=== PATIENT | female | born 1985 | race Hispanic/Latino ===

== ENCOUNTER 2022-08-05 22:07 | Emergency (ER) | payer SELFPAY ==
[2022-08-05 23:24] LABS: Absolute Lymphocytes (CBC) 2.2 K/uL (0.7-4.9); Hematocrit 37.8 % (36.0-45.0); Lymphocytes % 13.4 % (15.3-44.8); MCV 85.9 fL (80-100); MPV 8.8 fL (7.6-11.3)
[2022-08-05] MEDS ORDERED: dexAMETHasone 10 MG/ML VIAL ONE (23:25)
[2022-08-05] MEDS ORDERED: CLINDAMYCIN 900MG/D5W 900 MG/50 ML IVPB IV ONE (23:25)
[2022-08-05] MEDS ORDERED: HYDROCOD 2.5mg-ACETAMIN 108mg/5mL Soln ONE (23:25)
[2022-08-05] MEDS ORDERED: NA CHLORIDE 0.9% 1,000 ML ONE (23:25)
[2022-08-05 23:36] LABS: Potassium 3.4 mmol/L (3.5-5.1)
--- NOTE | 2022-08-06 00:05 | RAD REPORT ---
EXAM DESCRIPTION: CT - Soft Tissue Neck W/Contr - 08/05/2022 11:54 pm CLINICAL HISTORY: Neck pain/dysphagia COMPARISON: None. TECHNIQUE: Computed axial tomography of the neck was obtained. 50 cc Isovue 300 was administered in travenously. Coronal and sagittal reconstruction was performed. All CT scans are performed using dose optimization technique as appropriate and may include automated exposure control or mA/KV adjustment according to patient size. FINDINGS: The left tonsil is enlarged and inhomogeneous. A tonsillar/ peritonsillar abscess is not n oted. The parapharyngeal fat is normal. The remainder of the pharynx, tongue base, larynx and subglottic trachea appear unremarkable The parotid, submandibular and thyroid glands appear unremarkable. Small reactive neck lymph nodes. No fluid within the sinuses/mastoids IMPRESSION: Left tonsillitis
[2022-08-06 00:14] LABS: Urine Blood 3+ (Negative); Urine Glucose Negative (Negative); Urine Protein Trace (Negative); Urine pH 6.5 (5.0-7.0)
--- NOTE | 2022-08-06 00:35 | ER ---
Nurse's Notes [facility] Name: Alysa Win Age: 37 yrs Sex: Female : 1985 Arrival Date: 08/05/2022 Time: 22:09 Bed 19 Private MD: Diagnosis: Acute tonsillitis, unspecified Presentation: 08/05 22:18 Chief complaint: Painful abscess in back of throat x 3 days. Coronavirus screen: At this time, the client does not indicate any symptoms associated with coronavirus-19. Ebola Screen: No symptoms or risks identified at this time. Risk Assessment: Do you want to hurt yourself or someone else? Patient reports no desire to harm self or others. Onset of symptoms was August 03, 2022. 22:18 Method Of Arrival: Ambulatory 22:18 Acuity: HAYLEY 3 hb Historical: - Allergies: 22:20 No Known Allergies; hb - Immunization history:: Adult Immunizations up to date. - Social history:: Smoking status: Patient denies any tobacco usage or history of. Screenin:34 Abuse screen: Denies threats or abuse. Nutritional screening: No deficits noted. ja4 Tuberculosis screening: No symptoms or risk factors identified. Fall Risk None identified. Assessment: 22:32 General: Appears uncomfortable, obese, Behavior is cooperative. Pain: Complains of pain ja4 in neck Pain currently is 10 out of 10 on a pain scale. Quality of pain is described as aching, sharp, tender, Pain began 2-3 days ago. Respiratory: No deficits noted. EENT: Throat is reddened has enlarged tonsils bilaterally whit patches bilaterally. Cervical nodes enlarged bilaterally. Vital Signs: 22:18 BP 136 / 106; Pulse 105; Resp 18; Temp 99.9; Pulse Ox 100% on R/A; Weight 68.04 kg; hb Height 5 ft. (152.40 cm); Pain 10/10; 08/06 01:01 BP 124 / 85; Pulse 83; Resp 14; Pulse Ox 98% on R/A; ja4 08/05 22:18 Body Mass Index 29.29 (68.04 kg, 152.40 cm) ED Course: 08/05 22:09 Patient arrived in ED. bp1 22:20 Triage completed. hb 22:32 Devan Eli RN is Primary Nurse. ja4 22:34 Bed in low position. Call light in reach. Adult w/ patient. ja4 22:42 Strep Sent. ja4 22:43 Getachew Stanley PA is PHCP. cp 22:43 Getachew Pope MD is Attending Physician. cp 23:13 Blood Culture Adult (2) Sent. ja4 23:13 BMP Sent. ja4 23:13 Procalcitonin Sent. ja4 23:13 CBC with Diff Sent. ja4 23:13 Lactate Sent. ja4 23:13 [place] Screen Profile Sent. ja4 23:13 Strep Sent. ja4 23:55 CT Soft Tissue Neck W/contr In Process Unspecified. EDMS 08/06 00:34 Josie Hernandez MD is Referral Physician. cp 01:02 IV discontinued, intact, bleeding controlled, No redness/swelling at site. Pressure ja4 dressing applied. Administered Medications: 08/05 23:22 Drug: Decadron - Dexamethasone 10 mg Route: IVP; Site: right antecubital; ja4 23:22 Drug: Clindamycin 900 mg Route: IVPB; Infused Over: 30 mins; Site: right antecubital; ja4 23:22 Drug: Lortab Liquid 10 ml Route: PO; ja4 23:23 Drug: NS 0.9% 1000 ml Route: IV; Rate: 1 bolus; Site: right antecubital; ja4 08/06 01:01 Not Given (Patient Refused): Potassium Effervescent Tablet 25 mEq PO once; dissolve in ja4 4 ounces of water or juice Outcome: 00:34 Discharge ordered by MD. cp 01:02 Discharged to home ambulatory. ja4 01:02 Condition: stable 01:02 Discharge instructions given to patient, friend, Instructed on discharge instructions, follow up and referral plans. medication usage, Demonstrated understanding of instructions, follow-up care, medications, Prescriptions given X 3. 01:03 Patient left the ED. ja4 Signatures: Dispatcher [employer] [facility] Getachew Stanley PA PA cp Baxter, Heather, RN RN Mindy Mckeon [facility] Devan Eli RN RN ja4
--- NOTE | 2022-08-06 00:35 | EDPHYS ---
Physician Documentation [facility] Name: Alysa Win Age: 37 yrs Sex: Female : 1985 Arrival Date: 08/05/2022 Time: 22:09 Bed 19 Private MD: ED Physician Getachew Pope HPI: 08/05 22:50 This 37 yrs old Female presents to ER via Ambulatory with complaints of Sore cp Throat, "lump in throat". 22:50 The patient presents with sore throat, dysphagia, of both solids and liquids. The cp patient describes throat pain as constant. 22:50 Onset: The symptoms/episode began/occurred 3 day(s) ago. cp 22:50 Severity of symptoms: in the emergency department the symptoms are unchanged, despite cp home interventions. Associated signs and symptoms: Pertinent positives: earache, fever, headache. Historical: - Allergies: 22:20 No Known Allergies; hb - Immunization history:: Adult Immunizations up to date. - Social history:: Smoking status: Patient denies any tobacco usage or history of. ROS: 22:55 Constitutional: Positive for body aches, poor PO intake, Negative for fever. cp 22:55 Eyes: Negative for injury, pain, redness, and discharge. cp 22:55 ENT: Positive for difficulty swallowing, ear pain, sore throat, Negative for drainage from ear(s), difficulty handling secretions. 22:55 Cardiovascular: Negative for chest pain, palpitations. 22:55 Respiratory: Negative for cough, shortness of breath, wheezing. 22:55 Abdomen/GI: Negative for abdominal pain, vomiting, diarrhea, constipation. 22:55 Neuro: Positive for headache, Negative for altered mental status. 22:55 All other systems are negative. Exam: 23:00 Constitutional: The patient appears in no acute distress, alert, awake, non-toxic, well cp developed, well nourished, uncomfortable. 23:00 Head/Face: Normocephalic, atraumatic. cp 23:00 Eyes: Periorbital structures: appear normal, Conjunctiva: normal, no exudate, no injection, Sclera: no appreciated abnormality, Lids and lashes: appear normal, bilaterally. 23:00 ENT: External ear(s): are unremarkable, Ear canal(s): are normal, clear, TM's: bulging, is not appreciated, bilaterally, dullness, bilaterally, erythema, is not appreciated, bilaterally, Nose: is normal, Mouth: Lips: moist, Oral mucosa: moist, Posterior pharynx: Airway: no evidence of obstruction, patent, Tonsils: bilaterally enlarged, with erythema, with exudate, Uvula: midline, erythema, that is moderate, Voice: is hoarse. 23:00 Neck: ROM/movement: Meningeal signs: are not present, nuchal rigidity, is not appreciated. 23:00 Chest/axilla: Inspection: normal. 23:00 Cardiovascular: Rate: tachycardic, Rhythm: regular. 23:00 Respiratory: the patient does not display signs of respiratory distress, Respirations: normal, no use of accessory muscles, no retractions, labored breathing, is not present, Breath sounds: are clear throughout, no decreased breath sounds, no stridor, no wheezing. 23:00 Abdomen/GI: Inspection: abdomen appears normal, Palpation: abdomen is soft and non-tender, in all quadrants. 23:00 Neuro: Orientation: to person, place \\T\\ time. Mentation: is normal, Motor: moves all fours, strength is normal, Sensation: is normal. Vital Signs: 22:18 BP 136 / 106; Pulse 105; Resp 18; Temp 99.9; Pulse Ox 100% on R/A; Weight 68.04 kg; hb Height 5 ft. (152.40 cm); Pain 10/10; 08/06 01:01 BP 124 / 85; Pulse 83; Resp 14; Pulse Ox 98% on R/A; [facility] 08/05 22:18 Body Mass Index 29.29 (68.04 kg, 152.40 cm) hb [facility]: 08/05 22:44 Patient medically screened. [facility] 23:00 Differential diagnosis: group A strep tonsillitis, laryngitis, peritonsillar abscess cp pharyngitis, retropharyngeal abcess tonsillitis, uvulitis. 08/05 22:36 Order name: Strep; Complete Time: 00:06 [facility] 08/06 00:07 Interpretation: Reviewed. 08/05 22:50 Order name: [place] Screen Profile; Complete Time: 00:06 08/06 00:06 Interpretation: Reviewed. 08/05 22:50 Order name: CBC with Diff; Complete Time: 00:06 08/06 00:06 Interpretation: Normal except: WBC 16.10; YANELI% 77.0; LYM% 13.4; NEUT A 12.4; MNA 1.4. 08/05 22:50 Order name: Lactate; Complete Time: 00:06 08/06 00:06 Interpretation: LAC 0.9; Reviewed. 08/05 22:50 Order name: Procalcitonin; Complete Time: 00:18 08/06 00:18 Interpretation: Abnormal: Procalcitonin 0.09. 08/05 22:50 Order name: BMP; Complete Time: 00:06 08/06 00:06 Interpretation: Normal except: K 3.4. 08/05 22:50 Order name: CT Soft Tissue Neck W/contr; Complete Time: 00:10 08/05 22:50 Order name: Blood Culture Adult (2) 08/05 23:25 Order name: Throat Culture [facility] 08/06 00:14 Order name: Urine Dipstick-Ancillary; Complete Time: 00:18 [facility] 08/06 00:18 Interpretation: Normal except: UKET 1+; UBLD 3+; UPROT Trace; UESTR Trace. 08/06 00:14 Order name: Urine --Ancillary (enter results) [facility] 08/05 22:50 Order name: IV; Complete Time: 23:13 08/05 22:50 Order name: Urine Dipstick-Ancillary (obtain specimen); Complete Time: 00:13 08/05 22:50 Order name: Urine Test (obtain specimen); Complete Time: 00:13 cp Administered Medications: 23:22 Drug: Decadron - Dexamethasone 10 mg Route: IVP; Site: right antecubital; ja4 23:22 Drug: Clindamycin 900 mg Route: IVPB; Infused Over: 30 mins; Site: right antecubital; ja4 23:22 Drug: Lortab Liquid 10 ml Route: PO; ja4 23:23 Drug: NS 0.9% 1000 ml Route: IV; Rate: 1 bolus; Site: right antecubital; [facility] 08/06 01:01 Not Given (Patient Refused): Potassium Effervescent Tablet 25 mEq PO once; dissolve in ja4 4 ounces of water or juice Disposition Summary: 08/06/22 00:34 Discharge Ordered Location: Home cp Problem: new cp Symptoms: have improved cp Condition: Stable cp Diagnosis - Acute tonsillitis, unspecified cp Followup: cp - With: Josie Hernandez MD - When: 1 - 2 days - Reason: Worsening of condition Discharge Instructions: - Discharge Summary Sheet cp - Tonsillitis cp Forms: - Medication Reconciliation Form cp - Thank You Letter cp - Antibiotic Education cp - Prescription Opioid Use cp Prescriptions: - Lidocaine Viscous - take 5 milliliter by ORAL route every 4-6 hours; 1 bottle; Refills: 0, Product cp Selection Permitted - Clindamycin HCl 300 mg Oral Capsule - take 1 capsule by ORAL route every 6 hours for 10 days; 40 capsule; Refills: 0, cp Product Selection Permitted - Ibuprofen 800 mg Oral Tablet - take 1 tablet by ORAL route every 8 hours As needed take with food; 30 tablet; cp Refills: 0, Product Selection Permitted - Tylenol-Codeine #3 300 mg-30 mg Oral - take 2 tablet by ORAL route every 8-10 hours; 12 tablet; Refills: 0, Product cp Selection Permitted Signatures: Dispatcher [employer] Getachew Rogers MD MD cha Page, Corey, JOSEPH PA cp Darby Garcia RN RN Devan Eli RN RN ja4 Corrections: (The following items were deleted from the chart) 08/07 00:57 00:55 Constitutional: Positive for body aches, poor PO intake, Negative for fever, cp cp
[2022-08-06 01:21] VITALS: TEMP 99.9
[2022-08-06 01:24] VITALS: BP 124/85; O2SAT 98
[2022-08-06 02:45] LABS: Urine Specific Gravity/Preg 1.005 (1.005-1.030)
== END 2022-08-06 01:03 | disposition home or self-care (01) ==
LOC: ER 22:07
DX: J03.90 Acute tonsillitis, unspecified (principal); R51.9 Headache, unspecified
CPT/HCPCS: 36415; 70491; 80048; 81003; 81025; 83605; 84145; 85025; 86308; 87040; 87070; 87081; 96374; 96375; 99284; J1100; J7030; Q9967

== ENCOUNTER 2024-03-27 04:06 | Emergency (ER) | payer SELFPAY ==
[2024-03-27] MEDS ORDERED: CEFTRIAXONE 1000 MG/VIAL ONE (04:28)
[2024-03-27] MEDS ORDERED: LIDOCAINE VISCOUS 2% 10ML ORAL SOLN ONE (04:29)
[2024-03-27] MEDS ORDERED: dexAMETHasone 10 MG/ML VIAL ONE (04:29)
[2024-03-27] MEDS ORDERED: MAGNES/ALUMIN/SIMET 30ML UCUP ONE (04:29)
[2024-03-27] MEDS ORDERED: AMOX/K CLAV 875 MG TAB ONE (04:29)
[2024-03-27] MEDS ORDERED: WATER FOR INJ,STERILE 10 ML ONE (04:30)
[2024-03-27] MEDS ORDERED: IBUPROFEN 200 MG TAB PO ONE (04:49)
[2024-03-27] MEDS ORDERED: IBUPROFEN 400 MG TAB ONE (04:49)
[2024-03-27 05:07] LABS: SARS-CoV-2 Antigen CONTROL BLUE LINE VIS/BG OK; SARS-CoV-2 Antigen Rapid Res Negative (Negative)
--- NOTE | 2024-03-27 05:15 | ER ---
Nurse's Notes [facility] Name: Alysa Win Age: 38 yrs Sex: Female : 1985 Arrival Date: 03/27/2024 Time: 04:06 Bed 13 Private MD: Diagnosis: Acute tonsillitis, unspecified;Acute pharyngitis, unspecified;Fever, unspecified;Streptococcal pharyngitis;Acute streptococcal tonsillitis, unspecified Presentation: 03/27 04:14 Chief complaint: Patient states: sore throat pain of 10 with swelling, cough, left ear pf1 pain and frontal headache,onset Saturday. 04:14 Coronavirus screen: Vaccine status: Patient reports receiving the 2nd dose of the covid pf1 vaccine. [employer] Client denies travel out of the [place] in the last 14 days. Client presents with at least one sign or symptom that may indicate coronavirus-19. Ebola Screen: Patient negative for fever greater than or equal to 101.5 degrees Fahrenheit, and additional compatible Ebola Virus Disease symptoms. Initial Sepsis Screen: Does the patient meet any 2 criteria? No. Patient's initial sepsis screen is negative. Does the patient have a suspected source of infection? No. Patient's initial sepsis screen is negative. Risk Assessment: Do you want to hurt yourself or someone else? Patient reports no desire to harm self or others. Onset of symptoms was March 24, 2024. Care prior to arrival: Medication(s) given: Tylenol, 500mg at 0000. 04:14 Method Of Arrival: Ambulatory pf1 04:14 Acuity: HAYLEY 3 pf1 Triage Assessment: 04:14 General: Appears in no apparent distress. uncomfortable, well groomed, well developed, pf1 Behavior is calm, cooperative, appropriate for age, quiet. Pain: Complains of pain in throat,left ear and headache Pain currently is 10 out of 10 on a pain scale. EENT: Reports pain in left ear,frontal headache, and throat. Neuro: Level of Consciousness is awake, alert, obeys commands, Oriented to person, place, time, situation, Reports headache frontal area. Cardiovascular: No deficits noted. Capillary refill < 3 seconds Patient's skin is warm and dry. Respiratory: Reports cough that is Airway is patent Respiratory effort is even, unlabored, Respiratory pattern is regular, symmetrical. GI: No deficits noted. No signs and/or symptoms were reported involving the gastrointestinal system. : No deficits noted. No signs and/or symptoms were reported regarding the genitourinary system. Derm: No deficits noted. No signs and/or symptoms reported regarding the dermatologic system. Musculoskeletal: No deficits noted. No signs and/or symptoms reported regarding the musculoskeletal system. CLINICAL PSYCHOLOGY PROFESSOR: 05:30 Not , unknown pf1 Historical: - Allergies: 04:27 No Known Allergies; pf1 - PMHx: 04:27 None; pf1 - PSHx: 04:27 Appendectomy; pf1 - Immunization history:: Adult Immunizations not up to date, Client reports receiving the 2nd dose of the Covid vaccine, [employer] Last tetanus immunization: > 10 years ago Flu vaccine is not up to date. - Infectious Disease History:: Denies. - Social history:: Smoking status: Patient denies any tobacco usage or history of. Patient/guardian denies using alcohol, street drugs. Screenin:31 [facility] ED Fall Risk Assessment (Adult) History of falling in the last 3 months, pf1 including since admission No falls in past 3 months (0 pts) Confusion or Disorientation No (0 pts) Intoxicated or Sedated No (0 pts) Impaired Gait No (0 pts) Mobility Assist Device Used No (0 pt) Altered Elimination No (0 pt) Score/Fall Risk Level 0 - 2 = Low Risk Oriented to surroundings, Maintained a safe environment, Educated pt \T\ family on fall prevention, incl call for assistance when getting out of bed, Assessed \T\ reinforced patient's understanding of fall precautions, Provided non-skid footwear, Hourly rounding (assess needs \T\ fall precautionary measures) done, Used ambulatory aids as needed (educated on \T\ assisted with), Used gait belt as appropriate. Abuse screen: Denies threats or abuse. Nutritional screening: No deficits noted. Tuberculosis screening: No symptoms or risk factors identified. Assessment: 04:14 EENT: Throat is reddened has enlarged tonsils bilaterally. pf1 04:30 Reassessment: see triage assessment. pf1 04:30 Respiratory: Airway is patent Respiratory effort is even, unlabored, Respiratory pf1 pattern is regular, symmetrical, Breath sounds are clear bilaterally. 05:27 Reassessment: Patient appears in no apparent distress at this time. Patient and/or pf1 family updated on plan of care and expected duration. Pain level reassessed. Patient is alert, oriented x 3, equal unlabored respirations, skin warm/dry/pink. Patient states symptoms have improved. Vital Signs: 04:14 BP 144 / 100; Pulse 86; Resp 16; Temp 97.9; Pulse Ox 100% on R/A; Weight 68.04 kg; pf1 Height 5 ft. 1 in. ; Pain 10/10; 04:43 BP 130 / 79; Pulse 81; Pulse Ox 100% on R/A; lg3 05:28 BP 134 / 81; Pulse 77; Resp 16 S; Temp 97.1(O); Pulse Ox 100% on R/A; lg3 04:14 Body Mass Index 28.34 (68.04 kg, 154.94 cm) pf1 04:14 Pain Scale: Adult pf1 ED Course: 04:10 Patient arrived in ED. [email or web address] 04:14 Getachew Pope MD is Attending Physician. coleen 04:14 Arm band placed on right wrist. pf1 04:14 Patient has correct armband on for positive identification. Placed in gown. Call light pf1 in reach. 04:26 Lacy Cordero, RN is Primary Nurse. lg3 04:27 Triage completed. pf1 04:32 SARS RAPID Sent. rv1 04:32 Flu Sent. rv1 04:32 Strep Sent. rv1 04:39 No provider procedures requiring assistance completed. EKG done, by ED staff, reviewed pf1 by Getachew Pope MD. 05:14 Destiny Mercedes MD is Referral Physician. coleen 05:28 Patient did not have IV access during this emergency room visit. pf1 05:29 Provided Education on: follow up and prescriptions. pf1 05:31 Chest Pa And Lat (2 Views) XRAY In Process Unspecified. EDMS Administered Medications: 04:43 Drug: GI Cocktail without - (Maalox PO 30 ml, Lidocaine Mucous Membrane 2 % 15 lg3 ml) PO once Route: PO; 05:24 Follow up: Response: No adverse reaction lg3 04:43 Drug: Rocephin (cefTRIAXone) IM 1 grams IM once Route: IM; Site: right deltoid; lg3 05:24 Follow up: Response: No adverse reaction lg3 04:43 Drug: Dexamethasone IM 10 mg IM once Route: IM; Site: left deltoid; lg3 05:23 Follow up: Response: No adverse reaction lg3 04:43 Drug: Amoxicillin-Clavulanate PO 875 mg PO once Route: PO; lg3 05:23 Follow up: Response: No adverse reaction lg3 04:53 Drug: Ibuprofen PO 600 mg PO once Route: PO; lg3 05:23 Follow up: Response: No adverse reaction lg3 Medication: 05:29 VIS not applicable for this client. pf1 Outcome: 05:14 Discharge ordered by . coleen 05:28 Discharged to home ambulatory, pf1 05:28 Condition: stable 05:28 Discharge instructions given to patient, Instructed on discharge instructions, follow up and referral plans. Demonstrated understanding of instructions, follow-up care, medications, Prescriptions given X 4, 05:44 Patient left the ED. pf1 Signatures: Dispatcher [employer] EDMS Getachew Pope MD MD cha Able, Lacie RN RN lg3 Idalia Corona [place]ala, RN RN pf1 [place] rv1 Corrections: (The following items were deleted from the chart) 05:14 04:14 Neuro: No deficits noted. Level of Consciousness is awake, alert, obeys commands, pf1 Oriented to person, place, time, situation, pf1 05:28 04:14 Acuity: HAYLEY 4 pf1 pf1
--- NOTE | 2024-03-27 05:15 | EDPHYS ---
Physician Documentation [facility] Name: Alysa Win Age: 38 yrs Sex: Female : 1985 Arrival Date: 03/27/2024 Time: 04:06 Bed 13 Private MD: ED Physician Getachew Pope HPI: 03/27 04:22 This 38 yrs old Female presents to ER via Unassigned with complaints of Fever, coleen Sore Throat, Neck and Upper Back Pain, Difficulty Swallowing, Headache. 04:22 The patient reports fever, not measured (subjective). Onset: The symptoms/episode coleen began/occurred 2 day(s) ago. Modifying factors: there are no obvious modifying factors. Associated signs and symptoms: Pertinent positives: arthralgias. Severity of symptoms: At their worst the symptoms were mild moderate in the emergency department the symptoms are unchanged. The patient has experienced similar episodes in the past, a few times. 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 - Infectious Disease History:: Denies. - Social history:: Smoking status: Patient denies any tobacco usage or history of. Patient/guardian denies using alcohol, street drugs. ROS: 04:29 Constitutional: Negative for fever, chills, and weight loss, Eyes: Negative for injury, coleen pain, redness, and discharge, Neck: Negative for injury, pain, and swelling, Cardiovascular: Negative for chest pain, palpitations, and edema, Respiratory: Negative for shortness of breath, cough, wheezing, and pleuritic chest pain, Abdomen/GI: Negative for abdominal pain, nausea, vomiting, diarrhea, and constipation, Back: Negative for injury and pain, : Negative for injury, bleeding, discharge, and swelling, MS/Extremity: Negative for injury and deformity, Skin: Negative for injury, rash, and discoloration, Neuro: Negative for headache, weakness, numbness, tingling, and seizure, Psych: Negative for depression, anxiety, suicide ideation, homicidal ideation, and hallucinations, Allergy/Immunology: Negative for hives, rash, and allergies, Endocrine: Negative for neck swelling, polydipsia, polyuria, polyphagia, and marked weight changes, Hematologic/Lymphatic: Negative for swollen nodes, abnormal bleeding, and unusual bruising, 04:29 ENT: Positive for sinus congestion, sore throat, Exam: 04:29 Constitutional: This is a well developed, well nourished patient who is awake, alert, coleen and in no acute distress. Head/Face: Normocephalic, atraumatic. Eyes: Pupils equal round and reactive to light, extra-ocular motions intact. Lids and lashes normal. Conjunctiva and sclera are non-icteric and not injected. Cornea within normal limits. Periorbital areas with no swelling, redness, or edema. Neck: Trachea midline, no thyromegaly or masses palpated, and no cervical lymphadenopathy. Supple, full range of motion without nuchal rigidity, or vertebral point tenderness. No Meningismus. Chest/axilla: Normal chest wall appearance and motion. Nontender with no deformity. No lesions are appreciated. Cardiovascular: Regular rate and rhythm with a normal S1 and S2. No gallops, murmurs, or rubs. Normal PMI, no JVD. No pulse deficits. Respiratory: Lungs have equal breath sounds bilaterally, clear to auscultation and percussion. No rales, rhonchi or wheezes noted. No increased work of breathing, no retractions or nasal flaring. Abdomen/GI: Soft, non-tender, with normal bowel sounds. No distension or tympany. No guarding or rebound. No evidence of tenderness throughout. Back: No spinal tenderness. No costovertebral tenderness. Full range of motion. Skin: Warm, dry with normal turgor. Normal color with no rashes, no lesions, and no evidence of cellulitis. MS/ Extremity: Pulses equal, no cyanosis. Neurovascular intact. Full, normal range of motion. Neuro: Awake and alert, GCS 15, oriented to person, place, time, and situation. Cranial nerves II-XII grossly intact. Motor strength 5/5 in all extremities. Sensory grossly intact. Cerebellar exam normal. Normal gait. Psych: Awake, alert, with orientation to person, place and time. Behavior, mood, and affect are within normal limits. 04:29 ENT: Posterior pharynx: Tonsils: bilaterally enlarged, with erythema, Uvula: normal, midline, non-edematous, no erythema, swelling, is not appreciated, erythema, that is mild, exudate, is not appreciated, Dental exam: no acute changes, 04:43 ECG was reviewed by the Attending Physician. [facility] Vital Signs: 04:14 BP 144 / 100; Pulse 86; Resp 16; Temp 97.9; Pulse Ox 100% on R/A; Weight 68.04 kg; pf1 Height 5 ft. 1 in. ; Pain 10/10; 04:43 BP 130 / 79; Pulse 81; Pulse Ox 100% on R/A; lg3 05:28 BP 134 / 81; Pulse 77; Resp 16 S; Temp 97.1(O); Pulse Ox 100% on R/A; lg3 04:14 Body Mass Index 28.34 (68.04 kg, 154.94 cm) pf1 04:14 Pain Scale: Adult pf1 MDM: 04:[address] [facility] 04:31 Differential diagnosis: viral Infection, bacterial infection, URI, bronchitis, coleen pneumonia UTI, gastroenteritis. Data reviewed: vital signs, nurses notes, lab test result(s), Flu: negative. Consideration of Admission/Observation Escalation of care including admission/observation considered. I considered the following discharge prescriptions or medication management in the emergency department Medications were administered in the Emergency Department. See MAR. Test considered but Not performed: Labs: no cbc, no comp met. Historians other than the Patient: Daughter/Son: son well informed. Care significantly affected by the following chronic conditions: no hx. 03/27 04:22 Order name: Strep; Complete Time: 05:12 [facility] 03/27 04:22 Order name: Flu; Complete Time: 05:12 [facility] 03/27 04:22 Order name: SARS RAPID; Complete Time: 05:12 [facility] 03/27 04:38 Order name: Chest Pa And Lat (2 Views) XRAY [facility] 03/27 04:29 Order name: EKG - Nurse/Tech; Complete Time: 04:41 [facility] EC:43 Rate is 81 beats/min. Rhythm is regular. QRS Dickinson is Normal. AL interval is normal. QRS coleen interval is normal. QT interval is normal. No Q waves. T waves are Normal. No ST changes noted. Clinical impression: NSR w/ Non-specific ST/T Changes. Interpreted by me. Reviewed by me. Administered Medications: 04:43 Drug: GI Cocktail without - (Maalox PO 30 ml, Lidocaine Mucous Membrane 2 % 15 lg3 ml) PO once Route: PO; 05:24 Follow up: Response: No adverse reaction lg3 04:43 Drug: Rocephin (cefTRIAXone) IM 1 grams IM once Route: IM; Site: right deltoid; lg3 05:24 Follow up: Response: No adverse reaction lg3 04:43 Drug: Dexamethasone IM 10 mg IM once Route: IM; Site: left deltoid; lg3 05:23 Follow up: Response: No adverse reaction lg3 04:43 Drug: Amoxicillin-Clavulanate PO 875 mg PO once Route: PO; lg3 05:23 Follow up: Response: No adverse reaction lg3 04:53 Drug: Ibuprofen PO 600 mg PO once Route: PO; lg3 05:23 Follow up: Response: No adverse reaction lg3 Disposition Summary: 03/27/24 05:14 Discharge Ordered Notes: Location: Home coleen Problem: new coleen Symptoms: have improved coleen Condition: Stable coleen Diagnosis - Acute tonsillitis, unspecified coleen - Acute pharyngitis, unspecified coleen - Fever, unspecified coleen - Streptococcal pharyngitis coleen - Acute streptococcal tonsillitis, unspecified coleen Followup: coleen - With: Private Physician - When: 2 - 3 days - Reason: Recheck today's complaints, Continuance of care, Re-evaluation by your physician Followup: coleen - With: Destiny Mercedes MD - When: 2 - 3 days - Reason: Recheck today's complaints, Re-evaluation by your physician Discharge Instructions: - Discharge Summary Sheet coleen - Ibuprofen Dosage Chart, Pediatric coleen - Acetaminophen Dosage Chart, Pediatric coleen - Pharyngitis coleen - Sore Throat coleen - Strep Throat, Adult coleen - Tonsillitis coleen - Upper Respiratory Infection, Adult coleen - Tonsillitis, [id number] coleen - Pharyngitis, [id number] coleen Forms: - Medication Reconciliation Form coleen - Antibiotic Education coleen - Prescription Opioid Use coleen - Patient Portal Instructions coleen - Leadership Thank You Letter [facility] Prescriptions: - dexamethasone 4 mg Oral tablet - take 1 tablet ORAL route once daily; 3 tablet; Refills: 0, Product Selection coleen Permitted - Augmentin 875-125 mg Oral Tablet - take 1 tablet ORAL route every 12 hours for 10 days; 20 tablet; Refills: 0, [facility] Product Selection Permitted - Jody-D 12 Hour 60-120 mg Oral Tablet Sustained Release 12 hr - take 1 tablet ORAL route every 12 hours As needed; 20 tablet; Refills: 0, [facility] Product Selection Permitted - Tessalon Perles 100 mg Oral capsule - take 1 capsule ORAL route every 8 hours As needed; 30 capsule; Refills: 0, [facility] Product Selection Permitted Signatures: Dispatcher [employer] Getachew Rogers MD MD cha Able, Lacie RN RN lg3 Lisha Torres RN RN pf1
[2024-03-27 06:05] VITALS: BP 134/81; TEMP 97.1; O2SAT 100
--- NOTE | 2024-03-27 14:44 | RAD REPORT ---
EXAM DESCRIPTION: Chest Pa And Lat (2 Views) CLINICAL HISTORY: Cough;Pain COMPARISON: None TECHNIQUE: PA and lateral views of the chest. FINDINGS: Lung volumes adequate. Cardiac silhouette is normal in size. No pneumothorax. No large pleural effusion. No focal consolidation. No acute bony finding. IMPRESSION: No acute cardiopulmonary findings. Electronically signed by: Pilar Daniel MD 03/27/2024 07:08 AM CDT Due to temporary technical issues with the PACS/Fluency reporting system, reports are being signed by the in house radiologists without review as a courtesy to insure prompt reporting. The interpreting radiologist is fully responsible for the content of the report
--- NOTE | 2024-03-30 13:07 | EKG ---
Test Date: 2024-03-27 Test Time: 04:39:36 Packager Or Packer And Weigher: CIERRA MEASUREMENT RESULTS: Intervals: Rate: 81 NV: 168 QRSD: 84 QT: 354 QTc: 411 [place]: P: 59 NV: 168 QRS: 73 T: 44 INTERPRETIVE STATEMENTS: Normal sinus rhythm Nonspecific T wave abnormality Abnormal ECG No previous ECG available for comparison Electronically Signed On 03-30-24 12:58:24 CDT by Tian Diaz
== END 2024-03-27 05:44 | disposition home or self-care (01) ==
LOC: ER 04:06
DX: J03.00 Acute streptococcal tonsillitis, unspecified (principal); Z11.52 Encounter for screening for COVID-19
CPT/HCPCS: 36415; 71046; 87081; 87804; 87811; 93005; J0696; J1100